=== PATIENT | male | born 1990 | race Hispanic/Latino ===

== ENCOUNTER 2017-10-26 21:16 | Emergency (ER) | payer OTHER ==
[2017-10-26 21:35] VITALS: BP 129/80; PULSE 82; RESP 18; TEMP 98.3; O2SAT 98
[2017-10-26] MEDS ORDERED: Tdap Vaccine 0.5 ml Vial (10-64 yrs) IM ONE ×2 (21:53→22:04)
--- NOTE | 2017-10-26 22:11 | ED PDOC ---
HPI: Wound Care - HPI Time Seen by Provider: 10/26/17 21:48 Chief Complaint (Nursing): Finger,Hand,&Wrist Chief Complaint (Provider): finger laceration History Per: Patient History Of Present Illness: 27 y/o male presents for evaluation of laceration to right hand 2nd digit, sustained prior to arrival. Patient states he was cleaning a knife that accidentally cut his finger. Denies numbness/weakness right upper extremity, limitation of movement. Tetanus not up to date. Past Medical History Reviewed: Historical Data, Nursing Documentation, Vital Signs Vital Signs: Last Vital Signs Temp 98.3 F 10/26/17 21:33 Pulse 82 10/26/17 21:33 Resp 18 10/26/17 21:33 BP 129/80 10/26/17 21:33 Pulse Ox 98 10/26/17 21:33 - Medical History PMH: No Chronic Diseases - Surgical History Surgical History: No Surg Hx - Family History Family History: States: No Known Family Hx - Living Arrangements Living Arrangements: With Family - Allergies Allergies/Adverse Reactions: Allergies Allergy/AdvReac Type Severity Reaction Status Date / Time No Known Allergies Allergy Verified 10/26/17 21:33 Review of Systems ROS Statement: Except As Marked, All Systems Reviewed And Found Negative Musculoskeletal: Positive for: Hand Pain (right hand 2nd digit laceration) Physical Exam - Reviewed Nursing Documentation Reviewed: Yes Vital Signs Reviewed: Yes - Physical Exam Appears: Positive for: Well, Non-toxic, No Acute Distress Skin: Positive for: Normal Color Pulses-Radial (L): 2+ Pulses-Radial (R): 2+ Extremity: Positive for: Normal ROM, Other (1.5 cm "U" shape laceration noted distal dorsal right hand 2nd digit. No active bleeding. Distal NV, motor intact.) Neurologic/Psych: Positive for: Alert, Oriented. Negative for: Motor/Sensory Deficits - ECG O2 Sat by Pulse Oximetry: 98 Procedure: Wound Repair - Time Performed Time Performed: 22:00 - Time Out Time Out: Side verified, Site verified, Patient ID confirmed, Sterile procedures obs. - Consent Obtained Consent obtained: Verbal - Performed by Performed by: Mid-level Provider - Indications Indication(s):: Laceration - Location Finger:: Right Shape:: Curvilinear Dimensions Length cm: 1.5 Dimensions width cm: 0.3 - Debris Debris:: None - Irrigated Irrigated with ml of normal saline: 150mL - Wound repair method Vinay:: Tissue glue, Steri-strips (finger splint) - Muscle repiar layer closed with Muscle repair layer closed with:: Tetanus ordered - Patient tolerated procedure Patient Tolerated Procedure:: Well Medical Decision Making Medical Decision Making: Patient educated on wound care, advised follow up PMD 2-3 days. Return precautions given. Disposition - Clinical Impression Clinical Impression: Finger laceration - Patient ED Disposition Is Patient to be Admitted: No Counseled Patient/Family Regarding: Diagnosis, Need For Followup - Disposition Disposition: Routine/Home Disposition Time: 22:13 Condition: STABLE Instructions: Laceration Repair With Glue (DC)
== END 2017-10-26 22:28 | disposition home or self-care (01) ==
LOC: H.ER 21:16
DX: S61.210A Laceration without foreign body of right index finger without damage to nail, initial encounter (principal); W26.0XXA Contact with knife, initial encounter; Y92.89 Other specified places as the place of occurrence of the external cause